=== PATIENT | male | born 1965 | race Caucasian/White ===

== ENCOUNTER 2016-11-22 22:23 | Emergency (ER) | payer MEDICAID ==
[~2016-11-22] VITALS: Ht 180.3 cm; Wt 100.5 kg
[~2016-11-22 22:23] MED LIST: HYDR-3111 PO
[2016-11-22 22:34] VITALS: BP 137/102; PULSE 114; RESP 18; TEMP 99.1; O2SAT 94
[2016-11-22 22:56] VITALS: BP 139/97; PULSE 121; RESP 22; TEMP 99.1; O2SAT 95
[2016-11-22] MEDS ORDERED: ALBU0.08 NEB ×2 (22:56→22:59)
[2016-11-22] MEDS ORDERED: PRED20 PO (22:59)
[2016-11-22] MEDS ORDERED: IPRA0.02 NEB (22:59)
[2016-11-22] MEDS ORDERED: ZITHTAB PO (22:59)
[2016-11-22] MEDS ORDERED: AZITHROMYCIN 250 MG TAB PO ONE (23:00)
[2016-11-22] MEDS ORDERED: DEXAMETHASONE SOD PHOS 4 MG/ML VIAL IM ONE (23:00)
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
[2016-11-22] MEDS: RESP: ALBUTEROL 2.5 MG/IPRATROPIUM 0.5 MG NEB (SCH) INH ×2 (23:03→23:04)
--- NOTE | 2016-11-22 23:21 | RADHPO ---
EXAM DATE/TIME: 11/22/2016 23:05 [facility] COMPARISON: No previous studies available for comparison. INDICATIONS : Patient states shortness of breath. MEDICAL HISTORY : Hypertension. Smoker SURGICAL HISTORY : ENCOUNTER: Initial ACUITY: 1 day PAIN SCORE: 0/10 LOCATION: Bilateral chest FINDINGS: Mild bibasilar atelectasis. No evidence of effusion. Cardiomediastinal contours are satisfactory for technique and projection. CONCLUSION: Mild bibasilar atelectasis Albino Shine MD on November 22, 2016 at 23:18 Board Certified Radiologist. This report was verified electronically.
[2016-11-22 23:36] VITALS: PULSE 98; RESP 20; O2SAT 97
== END 2016-11-22 23:48 | disposition home or self-care (01) ==
LOC: PHED 22:23
DX: J44.1 Chronic obstructive pulmonary disease with (acute) exacerbation (principal); R50.9 Fever, unspecified; F17.210 Nicotine dependence, cigarettes, uncomplicated; I10 Essential (primary) hypertension
CPT/HCPCS: 71010; 87804; 94640; 94664; 96372; 99283; J1100